=== PATIENT | female | born 1940 | race Caucasian/White ===

== ENCOUNTER → 2016-10-14 | Outpatient (CLI) | payer MEDICARE, OTHER ==
--- NOTE | 2016-10-15 08:38 | RAD ---
EXAM DESCRIPTION: XR KNEE 4 OR MORE VIEWS CLINICAL HISTORY: 76 y/o ,F, PAIN IN LEFT KNEE COMPARISON: None. IMPRESSION: No evidence of left knee fracture. 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 Small loose bodies seen within the intertrochanteric notch. Small joint effusion. Joint space loss of the lateral facet of the patella and within the medial compartment. These findings can be seen in setting of osteoarthritis. Electronically signed by: Christopher Dudley MD 10/15/2016 08:36
--- NOTE | 2016-10-15 08:38 | RAD ---
EXAM DESCRIPTION: Pelvis series. CLINICAL HISTORY: Left hip pain. COMPARISON: None. TECHNIQUE: One view was submitted for evaluation. FINDINGS: No fracture, dislocation, or radiopaque foreign body is seen. Pelvic ring appears intact. Joint space loss of the right hip when compared to the left. Soft tissues are unremarkable. Lumbar fusion. IMPRESSION: Mild joint space loss of the right hip. This can be seen in the setting of degenerative change. The Electronically signed by: Christopher Dudley MD 10/15/2016 08:37
== END ==
LOC: RAD 13:56
PROVIDERS: ATTEND Orthopaedic Surgery
DX: M25.562 Pain in left knee (principal); M25.552 Pain in left hip; M25.862 Other specified joint disorders, left knee; M25.852 Other specified joint disorders, left hip

== ENCOUNTER → 2017-03-17 | Outpatient (CLI) | payer MEDICARE, OTHER | END | disposition home or self-care (01) | LOC: LAB.O 12:22 | PROVIDERS: ATTEND Family Medicine | DX: E03.9 Hypothyroidism, unspecified (principal); E55.9 Vitamin D deficiency, unspecified; E66.3 Overweight ==

== ENCOUNTER → 2017-07-06 | Outpatient (CLI) | payer MEDICARE, OTHER ==
--- NOTE | 2017-07-07 10:28 | MAM ---
EXAM DESCRIPTION: 3D Screening BILATERAL CLINICAL HISTORY: 77 yearsFemaleSCREENING no complaints. Remote family history of breast cancer. Postmenopausal. Currently undergoing Biote therapy. COMPARISON: 2-D digital screening bilateral study 07/01/2016. Report from prior examination also reviewed. TECHNIQUE: Bilateral CC and MLO projection full-field images, 3-D tomosynthesis digital mammographic technique. Also bilateral synthesized CC/ MLO full-field images. CAD not utilized. FINDINGS: The breast parenchymal density pattern is: Scattered areas of fibroglandular density. No skin thickening or nipple retraction bilateral intramammary lymph nodes. Coarse calcifications in the left breast. Bilateral solitary microcalcifications. Left axillary lymph nodes. No focal, stellate mass or density, focal asymmetry , and no suspicious microcalcifications bilaterally. Stable mammograms compared to prior study, June 2016, taking into account differences in mammographic technique IMPRESSION: BI-RADS CATEGORY: 2 - BENIGN FINDINGS. FOLLOW UP: Routine digital bilateral screening, one year interval from June 2017. Written communication explaining the IMPRESSION and follow-up, will be mailed to the patient and referring health care provider. According to the [employer], yearly mammograms are recommended starting at age 40 and continuing as long as a woman is in good health. Any breast change noted on a breast self-exam should be reported promptly to the patient's healthcare provider. Breast MRI is recommended for women with an approximately 20-25% or greater lifetime risk of breast cancer, including women with a strong family history of breast or ovarian cancer and women who have been treated for Hodgkin's disease. A negative mammographic report should not delay tissue diagnosis in patients with significant clinical history or physical findings. Extremely dense breast tissue limits the sensitivity of digital mammography. Electronically signed by: Quentin Hernández MD 07/07/2017 10:27 AM CDT
== END | disposition home or self-care (01) ==
LOC: MAMMO 09:01
PROVIDERS: ATTEND Family Medicine
DX: Z12.31 Encounter for screening mammogram for malignant neoplasm of breast (principal)
CPT/HCPCS: 77063; G0202

== ENCOUNTER → 2018-03-22 | Outpatient (CLI) | payer MEDICARE, OTHER ==
--- NOTE | 2018-03-22 10:58 | RAD ---
EXAM DESCRIPTION: Knee,Left Complete CLINICAL HISTORY: PAIN IN LEFT KNEE COMPARISON: October 14, 2016. FINDINGS: 4 standing views of the left knee again demonstrate mild narrowing of the medial and lateral tibiofemoral compartments with mild joint line osteophytes of the medial compartment. Small osteophyte of the lateral tibia plateau is seen. Calcifications of the meniscal cartilage are seen. Small posterior superior osteophyte of the patella is again seen. Mild narrowing of the lateral patellofemoral compartment is seen. No acute fracture or dislocation is identified. IMPRESSION: Moderate 3 compartment osteoarthritic changes of the left knee are again seen. 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 Electronically signed by: Evan Cramer MD 03/22/2018 10:57 AM CDT
--- NOTE | 2018-03-22 10:59 | RAD ---
EXAM DESCRIPTION: Pelvis CLINICAL HISTORY: PAIN IN LEFT HIP COMPARISON: Chamber 17 2017 IMPRESSION: Single AP view of the pelvis shows no evidence of acute fracture, focal bone destruction, or joint dislocation. Mild joint space narrowing and sclerotic changes to the superior lateral acetabulum are seen in the hips right greater than left consistent with mild to moderate osteoarthritic-type changes. Postsurgical changes to lower lumbar spine are partly visualized. Degenerative changes of the sacroiliac joints are noted. Electronically signed by: Evan Cramer MD 03/22/2018 10:58 AM CDT
--- NOTE | 2018-03-22 21:31 | MRI ---
MRI left knee without contrast INDICATION: Knee pain mass TECHNIQUE: Noncontrast MR imaging left knee FINDINGS: Extensor tendons are intact. Moderate joint effusion. Cruciate ligaments are intact. Mild degenerative change medial meniscus. Subchondral edema and cystic change posterior medial tibial plateau. There is a horizontal cleavage type degenerative tear lateral meniscus with large complicated multilocular para meniscal cyst. This cyst measures up to 4 cm craniocaudal by approximately 1.8 cm in width. There is osteoarthrosis of the medial and lateral tibiofemoral compartments with joint line osteophytes and multifocal grade 3-4 chondral fissuring. The lateral meniscus is partially extruded. There is mild degenerative change of the medial meniscus. Multifocal chondrosis of the knee. Focal grade 3 chondrosis midportion medial femoral condyle coronal series 601 image 16. Reactive/resorptive cystic changes noted of the intercondylar roof. There is grade 4 chondral fissuring lateral patellar facet with subchondral edema/cystic change. Minimal multifocal chondrosis of the trochlea. Mild ganglion cyst formation posterior medial adjacent to the PCL. IMPRESSION: Tricompartmental chondrosis and osteoarthrosis of the left knee Horizontal cleavage type tear lateral meniscus with partial lateral extrusion and large lateral joint line complicated para meniscal cyst Otherwise see above discussion Electronically signed by: Constantin Plasencia MD 03/22/2018 9:29 PM CDT
== END ==
LOC: RAD 07:43
PROVIDERS: ATTEND Orthopaedic Surgery
DX: S83.282A Other tear of lateral meniscus, current injury, left knee, initial encounter (principal); M25.869 Other specified joint disorders, unspecified knee; M17.0 Bilateral primary osteoarthritis of knee; M25.552 Pain in left hip

== ENCOUNTER → 2018-03-25 | Outpatient (CLI) | payer MEDICARE, OTHER | LOC: LAB.O 11:07 | PROVIDERS: ATTEND Orthopaedic Surgery | DX: Z01.818 Encounter for other preprocedural examination (principal) ==

== ENCOUNTER 2018-04-06 07:00 | Day surgery (SDC) | payer MEDICARE, OTHER ==
--- NOTE | 2018-04-03 15:04 | HP ---
CHIEF COMPLAINT: Left knee pain. HISTORY OF PRESENT ILLNESS: Daniela is a 78 year-old female with a history of pain in the left knee. Daniela has had this going on for quite a while. She does have popping but no locking. She does have pain predominantly on the medial and lateral aspects of the knee. She has been taking Aleve which she says does give her some relief. It keeps her from riding her bike at this time which is what she is really wanting to get back to doing. She has had an MRI and it does show some tearing of the menisci. Because of her symptoms and MRI, she has requested operative intervention. Although she does have some evidence of osteoarthritis, I think that she would probably benefit from knee arthroscopy just given her symptoms and findings on MRI. After discussing the risks, benefits, and alternatives to operative therapy, she has given informed consent for knee arthroscopy. PAST SURGICAL HISTORY: 1. Tonsillectomy. 2. Hysterectomy. 3. Bunionectomy. 4. Lumbar fusion. CURRENT MEDICATIONS: 1. Thyroid medicine. 2. Dexilant. 3. Cymbalta. 4. Simvastatin. 5. Calcium. 6. Aspirin. 7. CoQ-10. ALLERGIES: NO KNOWN DRUG ALLERGIES. CODE STATUS: DO NOT RESUSCITATE. IMMUNIZATIONS: Up to date. FAMILY HISTORY: None pertinent to today's complaints. SOCIAL HISTORY: She does not use any illicit drugs. She does smoke and drink on occasion. REVIEW OF SYSTEMS: Negative except as indicated in the History of Present Illness. PHYSICAL EXAMINATION: VITAL SIGNS: Blood pressure 143/80, pulse 72. Height 5' 4", weight 155. MENTAL STATUS: The patient is awake, alert, and is able to give a good history and participate in the physical. The patient is oriented to person, place and time. SKIN: Normal tone and turgor. MUSCULOSKELETAL: She has some tenderness along both medial and lateral aspects. She has no effusion or soft tissue swelling. Today, she does have popping throughout the knee but she does have full extension and flexion. There is no varus or valgus laxity. ASSESSMENT: 1. Knee pain with MRI findings consistent with meniscus strain and arthritis. PLAN: At this point we are going to do an knee arthroscopy and likely partial meniscectomy. We have discussed the risks, benefits, and alternatives to that and she has given informed consent for that. #[id number] [facility]
[~2018-04-06 07:00] MED LIST: BUPIVACAINE 0.25% W/EPI 50 ML VIAL INJ ONE; DEXAMETHASONE INJ 10 MG/ML VIAL ONE; KETOROLAC TROMETHAMINE INJ 30 MG/ML VIAL ONE; LACTATED RINGERS 1,000 ML ONE; LIDOCAINE 1% 2 ML VIAL INJ ONE; METOCLOPRAMIDE HCL INJ 10 MG/2 ML VIAL ONE; MIDAZOLAM INJ 2 MG/2 ML VIAL ONE; PROPOFOL 200 MG/20 ML VIAL IV ONE; SODIUM CHL 0.9% 100ML MINI-BAG 100 ML IVPB ONE; VANCOMYCIN HCL INJ 1,000 MG VIAL IVPB ONE; ceFAZolin SODIUM 1 GM VIAL ONE; ePHEDrine SULF 50 MG/ML ONE; fentaNYL CITRATE INJ 50 MCG/ML AMP ONE; raNITIdine HCL INJ 25 MG/ML VIAL ONE
[2018-04-06] MEDS ORDERED: ceFAZolin SODIUM 1 GM VIAL ONE (07:55)
[2018-04-06 08:58] VITALS: BP 119/54; TEMP 99; O2SAT 93
[2018-04-06] MEDS ORDERED: ACETAMINOPHEN 500 MG TAB ONE (09:06)
--- NOTE | 2018-04-07 09:58 | OP ---
DATE OF PROCEDURE: 04/06/18 PREOPERATIVE DIAGNOSIS: 1. Meniscus tear of the left knee. 2. Arthritis. POSTOPERATIVE DIAGNOSIS: 1. Chondromalacia of the medial compartment. 2. Tearing of the posterior medial meniscus. 3. Normal anterior cruciate ligament, normal posterior cruciate ligament. 4. Multiple full thickness cartilage loss areas with unstable cartilaginous flaps involving the lateral compartment. 5. Advanced complex tearing of the lateral meniscus with free flap. 6. Multiple loose bodies in the lateral gutter measuring 3 to 5 mm in length. 7. Normal suprapatellar pouch. 8. Full thickness cartilage loss of the patellofemoral joint. 9. Normal medical gutter. 10. Multiple loose bodies in the medial compartment measuring 3 to 5 mm. PROCEDURE: 1. Debridement. 2. Chondroplasty. 3. Meniscectomy. 4. Removal of loose bodies. SURGEON: James Cedeño MD. HOME HEALTH AID: Quentin Gonzalez CST, SA-C. ANESTHESIA: General. COMPLICATIONS: None. INDICATION: Ms. Pires has a history of knee pain with some mechanical symptoms. She had injection, however, failed to gain adequate relief. Because of her failure of conservative measures, she requested operative intervention. After discussing the risks, benefits and alternatives to that, the patient has given informed consent for that. PROCEDURE: The patient was brought to the Operating Room and placed in supine position. General anesthesia was induced and the patient's leg was sterilely prepped and draped. Following prepping and draping, standard anteromedial and anterolateral portals were established. Because of the findings, an accessory superolateral portal was made. Attention was first focused on the medial compartment where debridement of the loose bodies as well as the unstable cartilaginous surfaces off the femur was performed. The lateral compartment and lateral meniscus were debrided to stable base with a 3.5 mm full radius shaver. Through the accessory superolateral portal, the multiple loose bodies in the lateral gutter were removed. The knee was very thoroughly irrigated and drained. Following draining of the knee, the wounds were closed with Nylon suture. Sterile dressings were placed. The patient was awoken from anesthesia and taken to Recovery. POSTOPERATIVE INSTRUCTIONS: The patient will be partial weightbearing until followup with us in two days. #[id number] [facility]
== END 2018-04-06 09:35 | disposition home or self-care (01) ==
LOC: AMB 07:00
PROVIDERS: ATTEND Orthopaedic Surgery
DX: M23.222 Derangement of posterior horn of medial meniscus due to old tear or injury, left knee (principal); M23.201 Derangement of unspecified lateral meniscus due to old tear or injury, left knee; E03.9 Hypothyroidism, unspecified; F41.9 Anxiety disorder, unspecified; F32.9 Major depressive disorder, single episode, unspecified; I10 Essential (primary) hypertension; K21.9 Gastro-esophageal reflux disease without esophagitis; K58.9 Irritable bowel syndrome, unspecified; E78.5 Hyperlipidemia, unspecified; Z96.698 Presence of other orthopedic joint implants; Z87.891 Personal history of nicotine dependence; Z88.5 Allergy status to narcotic agent; Z79.82 Long term (current) use of aspirin; Z79.899 Other long term (current) drug therapy
CPT/HCPCS: 01400; 29880; J0690; J1100; J1885; J2250; J2765; J2780; J3010; J3370; J3490; J7050; J7120

== ENCOUNTER → 2018-07-20 | Outpatient (CLI) | payer MEDICARE, OTHER ==
--- NOTE | 2018-07-21 15:28 | MAM ---
EXAM DESCRIPTION: 3D Screening BILATERAL : Digital Mammography. CLINICAL HISTORY: 78 years Female SCREENING . No complaints or personal history of breast cancer. Remote family history of breast cancer. Childbirth. Postmenopausal. Currently on HRT. Lifetime risk of developing breast cancer (Tyrer-Cuzick model)(%): 3.5. COMPARISON: Bilateral screening digital breast tomosynthesis 07/06/2017. TECHNIQUE: Bilateral CC and MLO projection full-field images, Digital tomosynthesis mammographic technique. Bilateral digital 2-D full-field MLO images. CAD not utilized. FINDINGS: The breast parenchymal density pattern is: Scattered areas of fibroglandular density. No skin thickening or nipple retraction. Bilateral axillary lymph nodes. Bilateral solitary microcalcifications. Coarse calcifications anterior left breast. Bilateral nodular densities are stable. No new focal, stellate mass or density, focal asymmetry , and no suspicious microcalcifications bilaterally. Stable mammograms compared to prior study. IMPRESSION: Benign exam. BIRAD CATEGORY: 2 BENIGN FINDINGS. RECOMMENDATIONS: FOLLOW UP: Routine digital bilateral screening, one year interval from June 2018. Written communication explaining the IMPRESSION and follow-up, will be mailed to the patient and referring health care provider. According to the [employer], yearly mammograms are recommended starting at age 40 and continuing as long as a woman is in good health. Any breast change noted on a breast self-exam should be reported promptly to the patient's healthcare provider. Breast MRI is recommended for women with an approximately 20-25% or greater lifetime risk of breast cancer, including women with a strong family history of breast or ovarian cancer and women who have been treated for Hodgkin's disease. A negative mammographic report should not delay tissue diagnosis in patients with significant clinical history or physical findings. Extremely dense breast tissue limits the sensitivity of digital mammography. Electronically signed by: Quentin Hernández MD 07/21/2018 3:27 PM CDT
== END ==
LOC: MAMMO 11:30
PROVIDERS: ATTEND Family Medicine
DX: Z12.31 Encounter for screening mammogram for malignant neoplasm of breast (principal)

== ENCOUNTER → 2018-08-27 | Outpatient (CLI) | payer MEDICARE, OTHER | LOC: RESP 09:04 | PROVIDERS: ATTEND Orthopaedic Surgery | DX: Z01.818 Encounter for other preprocedural examination (principal) ==

== ENCOUNTER 2018-09-15 05:57 | Day surgery (SDC) | payer MEDICARE, OTHER ==
[2018-09-15] MEDS ORDERED: LACTATED RINGERS 1,000 ML ONE (06:06)
[2018-09-15] MEDS ORDERED: ceFAZolin SODIUM 1 GM VIAL ONE ×2 (06:06→07:42)
[2018-09-15] MEDS ORDERED: SODIUM CHL 0.9% 100ML MINI-BAG 100 ML IVPB ONE (06:06)
[2018-09-15] MEDS ORDERED: MIDAZOLAM INJ 2 MG/2 ML VIAL ONE (07:00)
[2018-09-15] MEDS ORDERED: fentaNYL CITRATE INJ 50 MCG/ML AMP ONE (07:00)
[2018-09-15] MEDS ORDERED: VANCOMYCIN HCL INJ 1,000 MG VIAL IVPB ONE (07:43)
[2018-09-15] MEDS ORDERED: BUPIVACAINE 0.5% 30 ML VIAL INJ ONE (08:11)
[2018-09-15] MEDS ORDERED: BUPIVACAINE LIPOSOME 13.3 MG/ML VIAL INJ ONE (08:11)
[2018-09-15] MEDS: ceFAZolin SODIUM 1 GM VIAL ONE ×2 (08:28→09:14)
[2018-09-15] MEDS: VANCOMYCIN HCL INJ 1,000 MG VIAL IVPB ONE ×2 (08:28→09:14)
[2018-09-15] MEDS: fentaNYL CITRATE INJ 50 MCG/ML AMP ONE ×3 (09:58→10:10)
[2018-09-15] MEDS ORDERED: DEXAMETHASONE INJ 10 MG/ML VIAL IV ONE (10:00)
[2018-09-15] MEDS ORDERED: PROPOFOL 200 MG/20 ML VIAL IV ONE (10:00)
[2018-09-15] MEDS ORDERED: ONDANSETRON INJ 4 MG/2 ML VIAL IV ONE (10:00)
[2018-09-15] MEDS ORDERED: LIDOCAINE 1% 10 ML VIAL INJ ONE (10:00)
[2018-09-15] MEDS ORDERED: raNITIdine HCL INJ 25 MG/ML VIAL IV ONE (10:00)
[2018-09-15] MEDS ORDERED: METOCLOPRAMIDE HCL INJ 10 MG/2 ML VIAL IV ONE (10:00)
[2018-09-15] MEDS ORDERED: HYDROcodone 5MG/APAP 325MG 1 EA TAB ONE (10:49)
[2018-09-15 13:04] VITALS: BP 131/58; TEMP 97.7; O2SAT 97
--- NOTE | 2018-09-16 13:24 | OP ---
DATE OF PROCEDURE: 09/15/18 PREOPERATIVE DIAGNOSIS: 1. Benign mass of the left knee. POSTOPERATIVE DIAGNOSIS: 1. Benign mass of the left knee. PROCEDURE: 1. Excision of mass. SURGEON: James Cedeño MD. REAMING PRESS OPERATOR: Quentin Gonzalez CST, SA-C. ANESTHESIA: General anesthesia. COMPLICATIONS: None. FINDINGS: Large perimeniscal cyst that was partially fluid-filled. INDICATION: Ms. Marion has a history of a tear of the meniscus which was approached arthroscopically. Unfortunately, the cystic mass did not resolve on its own and continued to give her issues. We discussed options with regards to the mass as well as the risks, benefits and alternatives to operative therapy. Once we discussed those, informed consent was obtained for excision of the mass. PROCEDURE: The patient was brought to the Operating Room and placed in supine position. General anesthesia was induced and the patient's leg was sterilely prepped and draped. An incision was made directly over the lateral aspect of the knee overlying the mass. Dissection was carried down to the iliotibial band and the fibers of the IT band were split along the course of their direction. Following that, blunt dissection was carefully used to dissect around the mass and it was taken down to the level of the joint-line. There was a definite and obvious defect in the capsule from the base of the mass. Once that had been identified, the mass was removed and the wound was very thoroughly irrigated. The defect in the capsule was tightly closed. The fibers of the IT band were reapproximated an the skin was closed with a combination of running and interrupted subcuticular stitches. Sterile dressings were placed. The patient was awoken from anesthesia and taken to Recovery. POSTOPERATIVE PLAN: She will followup with us in approximately 2 days. She will be weightbearing as tolerated. #[id number] [facility]
== END 2018-09-15 11:30 | disposition home or self-care (01) ==
LOC: AMB 05:57
PROVIDERS: ATTEND Orthopaedic Surgery
DX: M23.007 Cystic meniscus, unspecified meniscus, left knee (principal); I10 Essential (primary) hypertension; Z88.5 Allergy status to narcotic agent; Z79.899 Other long term (current) drug therapy
CPT/HCPCS: 00400; 27327; J0690; J1100; J2250; J2405; J2765; J2780; J3010; J3370; J3490; J7050; J7120

== ENCOUNTER → 2018-11-23 | Outpatient (CLI) | payer MEDICARE, OTHER | LOC: GMAJ 10:36 | PROVIDERS: ATTEND Family Medicine | DX: E03.9 Hypothyroidism, unspecified (principal) ==

== ENCOUNTER → 2018-12-27 | Outpatient (CLI) | payer MEDICARE, OTHER ==
--- NOTE | 2018-12-27 21:23 | US ---
US THYROID CLINICAL STATEMENT: THYROID NODULE. COMPARISON: None TECHNIQUE: Transcutaneous scanning, grayscale and Doppler modes. FINDINGS: Size right thyroid lobe: 3.7 x 1.6 x 1.2 cm Size left thyroid lobe: 4.4 x 1.2 x 1.1 cm Size isthmus: 0.3 cm Estimated total number of nodules greater than or equal to 1 cm: 2 Nodule 1: Size: 2.2 x 1.1 x 1.0 cm Location: Right Upper no palpable mass. No prior thyroid surgery or therapy. Composition: mixed cystic and solid: 1 point Echogenicity: hypoechoic: 2 points Shape: wider than tall: 0 points Margins: smooth: 0 points Echogenic foci: none: 0 points ACR Total Points: 3; ACR TI-RADS risk category: TR3 - mildly suspicious nodule. Nodule 2: Size: 1.0 x 0.5 x 0.5 cm Location: Left Upper Composition: solid or almost completely solid: 2 points Echogenicity: hypoechoic: 2 points Shape: wider than tall: 0 points Margins: smooth: 0 points Echogenic foci: none: 0 points ACR Total Points: 4; ACR TI-RADS risk category: TR4 - moderately suspicious nodule. Nodule 3: Size: 0.7 x 0.5 x 0.4 cm Location: Left Lower Composition: solid or almost completely solid: 2 points Echogenicity: hypoechoic: 2 points Shape: wider than tall: 0 points Margins: smooth: 0 points Echogenic foci: none: 0 points ACR Total Points: 4; ACR TI-RADS risk category: TR4 - moderately suspicious nodule. Nodule 4: Size: 0.6 x 0.5 x 0.4 cm Location: Left Upper Composition: solid or almost completely solid: 2 points Echogenicity: hypoechoic: 2 points Shape: wider than tall: 0 points Margins: smooth: 0 points Echogenic foci: none: 0 points ACR Total Points: 4; ACR TI-RADS risk category: TR4 - moderately suspicious nodule. The soft tissue around the thyroid gland shows no distinct cyst or dominant solid mass. No parenchymal edema or large calcifications. No Overlying skin changes. Normal vascularity. IMPRESSION: 1. Nodule 1: ACR TI-RADS 2017 Category TR3. Recommend: Follow-up ultrasound in 1 year.. Recommendations based upon [employer] Best Practice recommendations and ACR TI-RADS 2017 guidelines. Please see below*. 2. Nodule 2: ACR TI-RADS 2017 Category TR 4. Recommend: Follow-up ultrasound in 1 year. 3. Nodule 3: ACR TI-RADS 2017 Category TR 4. Recommend: No further follow-up. 4. Nodule 4: ACR TI-RADS 2017 Category TR 4. Recommend: No further follow-up. Soft tissue around the thyroid gland is unremarkable. *ACR TI-RADS 2017 Recommendations: TR1: No FNA or follow up TR2: No FNA or follow up TR3: FNA if >/= 2.5 cm, follow up if 1.5 - 2.4 cm in 1, 3, and 5 years TR4: FNA if >/= 1.5 cm, follow up if 1.0 - 1.4 cm in 1, 2, 3, and 5 years TR5: FNA if >/= 1.0 cm, follow up if 0.5 - 0.9 cm every year for 5 years ACR TI-RADS recommends that no more than two nodules with the highest ACR TI-RADS total point should be biopsied and no more than four nodules should be followed. These recommendations do not apply to patients with increased risk for thyroid cancer or patients with symptomatic thyroid disease. Electronically signed by: Quentin Hernández MD 12/27/2018 9:20 PM CDT
== END ==
LOC: US 15:59
PROVIDERS: ATTEND Family Medicine
DX: E04.1 Nontoxic single thyroid nodule (principal)

== ENCOUNTER → 2019-06-23 | Outpatient (CLI) | payer MEDICARE, OTHER ==
--- NOTE | 2019-06-25 13:57 | CT ---
EXAM DESCRIPTION: Lumbar Spine: Computed Tomography. CLINICAL HISTORY: 79 years Female M47.26. COMPARISON: MRI scan lumbar spine 02/14/2019. TECHNIQUE: Spiral, axial 2.5 x 2.5 mm scans through the lumbarspine without contrast. Coronal and sagittal 2.0 mm Reconstructions. Volume rendering 0.6 mm 3-D rotational images. Total Exam DLP: 372.34 mGy-cm. This exam was performed according to our departmental dose-optimization program which includes automated exposure control, adjustment of the mA and/or kV according to patient size and/or use of iterative reconstruction technique; to reduce radiation dose to as low as reasonably achievable (ALARA). Minimal image deformity due to beam hardening artifact from the fusion hardware. FINDINGS: L5-S1: Minimal disc space is visualized on axial series 4, image 73. Severe narrowing of the disc space with degenerative gas formation. Superior and inferior endplate irregularities. Anterior spurs almost bridging. Posterior marginal spurs with minimal disc remnant bulge 2 mm. Mild to moderate canal narrowing. Bilateral moderate to severe foraminal narrowing more on the left. Hypertrophic facet arthrosis and flavum ligament thickening. Posterior bilateral transpedicular fusion construct L2-L5 with unilateral connecting rods. Daniel on the right spanning all 4 segments. 2 rods on the left spanning L2-L3, and L4-L5. Cross-link at L2-L3 level. Minimal subsidence of the interbody fusion device into the endplates at L2-L3 and L3-L4. Decreased decreased endplate with no subsidence at L4-L5. Narrowing of the posterior canal by endplate spur formation but no canal stenosis. Moderate foraminal stenosis bilaterally at L4-L5. Bilateral foramina are mildly narrowed at L3-L4. 2 mm grade 1 retrolisthesis at L2-L3: Posterior soft tissue bulging into the canal but more on the right bulging into the foramen with calcific margins and bilateral foraminal stenosis. L1-L2: Disc space narrowing more right than left with right side disc osteophyte complex encroachment on the right foramen. Anterior disc osteophyte bulge. Degenerative gas formation in the disc in the midline into the right of midline. Prominent disc bulge into the left foramen. Bilateral posterior decompression. Bilateral foramina are nearly stenotic. Retrolisthesis 3 mm. T12-L1: Disc space loss with disc degeneration and degenerative gas formation. Posterior broad-based bulge. Bilateral hypertrophic facet arthrosis and thickening of the ligaments. AP canal diameter 11 mm. Mild left foraminal narrowing and moderate right foraminal narrowing. Posterior disc osteophyte bulge at T11-T12 with disc space loss and minimal left foraminal narrowing moderate to severe right foraminal narrowing. Mild canal narrowing. Dextroscoliosis L2-L4 levoscoliosis T12-L2. No compression type vertebral body fractures. IMPRESSION: 1. Bilateral posterior transpedicular fusion construct L2-L5. No hardware complications. Moderate foraminal stenosis bilaterally at L4-L5. Also bilateral foraminal stenosis at L2-L3. Minimal subsidence of interbody fusion devices into the endplates at L2-L3 and L3-L4. 2. Bilateral moderate to severe foraminal narrowing at L5-S1 with advanced spondylosis, disc pace loss and disc desiccation. 3. Retrolisthesis at L1-L2. Prominent disc bulge into the left foramen. Disc osteophyte complex encroachment on the right foramen. Bilateral foramina are nearly stenotic. 4. Moderate canal and right foraminal narrowing at T12-L1. Severe right foraminal narrowing at T11-T12 with spondylosis. Electronically signed by: Quentin Hernández MD 06/25/2019 1:55 PM CDT
== END ==
LOC: CT 11:00
PROVIDERS: ATTEND Neurological Surgery
DX: M47.26 Other spondylosis with radiculopathy, lumbar region (principal); M47.24 Other spondylosis with radiculopathy, thoracic region; M51.16 Intervertebral disc disorders with radiculopathy, lumbar region; M48.062 Spinal stenosis, lumbar region with neurogenic claudication; M43.16 Spondylolisthesis, lumbar region; M25.78 Osteophyte, vertebrae; Z98.1 Arthrodesis status

== ENCOUNTER → 2019-07-27 | Outpatient (CLI) | payer MEDICARE, OTHER ==
--- NOTE | 2019-07-29 16:07 | MAM ---
EXAM DESCRIPTION: 3D Screening BILATERAL : Digital Mammography. CLINICAL HISTORY: 79 years Female ANNUAL SCREENING . No complaints or personal history of breast cancer. Remote family history of breast cancer. Menarche age 13. Childbirth. Postmenopausal 45+ years. Currently on HRT. Lifetime risk of developing breast cancer (Tyrer-Cuzick model)(%): 3.3. COMPARISON: Bilateral screening digital breast tomosynthesis 20 July 2018 and 06 July 2017.. No prior reports available. TECHNIQUE: Bilateral CC and MLO projection full-field images, digital tomosynthesis mammographic technique. Bilateral digital 2-D full-field MLO images. CAD not available for tomosynthesis or 2-D images. FINDINGS: The breast parenchymal density pattern is: Heterogeneously dense breast tissue, which may obscure small masses. No skin thickening or nipple retraction. Left breast skin moles. Bilateral axillary lymph nodes. 2 coarse calcifications associated with architectural distortion anterior lateral left breast stable. No new focal, stellate mass or density, focal asymmetry , and no suspicious microcalcifications bilaterally. Stable mammograms compared to prior studies. IMPRESSION: Benign exam. BIRAD CATEGORY: 2 BENIGN FINDINGS. RECOMMENDATIONS: FOLLOW UP: Routine digital bilateral mammographic screening, one year interval from June 2019. Written communication explaining the IMPRESSION and follow-up, will be mailed to the patient and referring health care provider. According to the [employer], yearly mammograms are recommended starting at age 40 and continuing as long as a woman is in good health. Any breast change noted on a breast self-exam should be reported promptly to the patient's healthcare provider. Breast MRI is recommended for women with an approximately 20-25% or greater lifetime risk of breast cancer, including women with a strong family history of breast or ovarian cancer and women who have been treated for Hodgkin's disease. A negative mammographic report should not delay tissue diagnosis in patients with significant clinical history or physical findings. Extremely dense breast tissue limits the sensitivity of digital mammography. Electronically signed by: Quentin Hernández MD 07/29/2019 4:06 PM CDT
== END ==
LOC: MAMMO 11:23
PROVIDERS: ATTEND Nurse Practitioner Family
DX: Z12.31 Encounter for screening mammogram for malignant neoplasm of breast (principal)

== ENCOUNTER → 2019-10-17 | Outpatient (CLI) | payer MEDICARE, OTHER | LOC: GMAJ 10:54 | PROVIDERS: ATTEND Family Medicine | DX: E03.8 Other specified hypothyroidism (principal); E78.2 Mixed hyperlipidemia; I10 Essential (primary) hypertension ==

== ENCOUNTER → 2020-01-19 | Outpatient (CLI) | payer MEDICARE, OTHER ==
--- NOTE | 2020-01-19 22:54 | US ---
US THYROID CLINICAL STATEMENT:79 years Female NONTOXIC SINGLE THYROID NODULE. Follow-up from ultrasound one year ago. No palpable mass. No prior thyroid surgery or therapy. COMPARISON: Thyroid ultrasound December 2018. TECHNIQUE: Transcutaneous scanning, grayscale and Doppler modes. FINDINGS: Size right thyroid lobe: 3.5 x 1.9 x 1.8 cm Size left thyroid lobe: 4.2 x 1.7 x 1.1 cm Size isthmus: 0.3 cm Estimated total number of nodules greater than or equal to 1 cm: 1 Nodule 1: Size: 1.2 x 0.7 x 0.6 cm. 2.2 x 1.1 x 1.0 cm one year ago. Location: Right Mid Composition: mixed cystic and solid: 1 point Echogenicity: hypoechoic: 2 points Shape: wider than tall: 0 points Margins: ill-defined: 0 points Echogenic foci: peripheral calcifications: 2 points ACR Total Points: 5; ACR TI-RADS risk category: TR4 - moderately suspicious nodule. Nodule 2: Size: 0.7 x 0.8 x 0.4 cm Location: Left Upper Composition: solid or almost completely solid: 2 points Echogenicity: hypoechoic: 2 points Shape: wider than tall: 0 points Margins: smooth: 0 points Echogenic foci: none: 0 points ACR Total Points: 4; ACR TI-RADS risk category: TR4 - moderately suspicious nodule. Nodule 3: Size: 0.8 x 0.8 x 0.5 cm Location: Left Mid Composition: solid or almost completely solid: 2 points Echogenicity: hypoechoic: 2 points Shape: wider than tall: 0 points Margins: smooth: 0 points Echogenic foci: none: 0 points ACR Total Points: 4; ACR TI-RADS risk category: TR4 - moderately suspicious nodule. Nodule 4: Was not well seen on this study compared to the prior study. Soft tissues around the thyroid gland show no dominant solid mass, no distinct cyst, and no large calcifications. IMPRESSION: 1. Nodule 1: ACR TI-RADS 2017 Category TR4. Decreased in size since the prior study. Small calcifications now seen peripherally. Recommend: Follow-up ultrasound in 1 year.. Recommendations based upon [facility] Best Practice recommendations and ACR TI-RADS 2017 guidelines. Please see below*. 2. Nodule 2: ACR TI-RADS 2017 Category TR4. Recommend: No further follow-up. 3. Nodule 3: ACR TI-RADS 2017 Category TR4. Recommend: No further follow-up. 4. Soft tissue around the thyroid gland is unremarkable. *ACR TI-RADS 2017 Recommendations for imaging follow-up of nodules: TR1: No FNA or follow up TR2: No FNA or follow up TR3: FNA if >/= 2.5 cm, follow up if 1.5 - 2.4 cm in 1, 3, and 5 years TR4: FNA if >/= 1.5 cm, follow up if 1.0 - 1.4 cm in 1, 2, 3, and 5 years TR5: FNA if >/= 1.0 cm, follow up if 0.5 - 0.9 cm every year for 5 years ACR TI-RADS recommends that no more than two nodules with the highest ACR TI-RADS total point should be biopsied and no more than four nodules should be followed. These recommendations do not apply to patients with increased risk for thyroid cancer or patients with symptomatic thyroid disease. Electronically signed by: Quentin Hernández MD 01/19/2020 10:53 PM CDT
== END ==
LOC: US 10:00
PROVIDERS: ATTEND Family Medicine
DX: E04.2 Nontoxic multinodular goiter (principal)

== ENCOUNTER → 2020-02-14 | Outpatient (CLI) | payer MEDICARE, OTHER | LOC: GMAJ 12:01 | PROVIDERS: ATTEND Family Medicine | DX: E03.9 Hypothyroidism, unspecified (principal) ==

== ENCOUNTER → 2020-08-16 | Outpatient (CLI) | payer MEDICARE, OTHER ==
--- NOTE | 2020-08-17 15:03 | MAM ---
EXAM DESCRIPTION: 3D Screening BILATERAL : Digital Mammography. CLINICAL HISTORY: 80 years Female screening . No complaints. Remote family history of breast cancer. Menarche age 13. Childbirth age 25. Menopause age 32 currently on HRT. Lifetime risk of developing breast cancer (Tyrer-Cuzick model)(%): 3.3. COMPARISON: Bilateral screening digital breast tomosynthesis June 2019 and June 2018.. TECHNIQUE: Bilateral CC and MLO projection full-field images, with [employer]placement digital tomosynthesis mammographic technique. Bilateral 2-D digital full-field images, MLO and CC projections, non-displaced. Bilateral digital 2-D full-field MLO images. and CC images. CAD available for 2-D images. Note: Patient had limited mobility in her neck and difficulty elevating chin on the MLO images. FINDINGS: The breast parenchymal density pattern is: Heterogeneously dense breast tissue, which may obscure small masses. No skin thickening or nipple retraction. Axillary nodes. Bilateral solitary microcalcifications and coarse calcifications. The retroareolar focal asymmetry is stable. No new focal, stellate mass or density, focal asymmetry , and no suspicious microcalcifications bilaterally. Stable mammograms compared to prior study. IMPRESSION: Benign exam. BIRAD CATEGORY: 2 BENIGN FINDINGS. RECOMMENDATIONS: FOLLOW UP: Routine digital bilateral mammographic screening, one year interval from July 2020. Written communication explaining the IMPRESSION and follow-up, will be mailed to the patient and referring health care provider. According to the [employer], yearly mammograms are recommended starting at age 40 and continuing as long as a woman is in good health. Any breast change noted on a breast self-exam should be reported promptly to the patient's healthcare provider. Breast MRI is recommended for women with an approximately 20-25% or greater lifetime risk of breast cancer, including women with a strong family history of breast or ovarian cancer and women who have been treated for Hodgkin's disease. A negative mammographic report should not delay tissue diagnosis in patients with significant clinical history or physical findings. Extremely dense breast tissue limits the sensitivity of digital mammography. Electronically signed by: Quentin Hernández MD 08/17/2020 3:01 PM [facility]
== END ==
LOC: MAMMO 10:00
PROVIDERS: ATTEND Family Medicine
DX: Z12.31 Encounter for screening mammogram for malignant neoplasm of breast (principal)